=== PATIENT | female | born 1950 | race Caucasian/White ===

== ENCOUNTER → 2016-07-10 17:20 | Outpatient (CLI) | payer OTHER ==
[2013-01-16 14:46] VITALS: BMI 28.3
[~2016-07-10 17:20] MED LIST: ASCORBIC ACID500 MG PO; ASPIRIN 81 MG E81 MG PO; NEXIUM20 MG PO; VITAMIN D2000 UNIT PO; ZETIA10 MG PO
== END | disposition home or self-care (01) ==
LOC: D.MAMMO 05-03 13:00
DX: Z12.31 Encounter for screening mammogram for malignant neoplasm of breast (principal)

== ENCOUNTER → 2018-01-21 22:57 | Outpatient (CLI) | payer MEDICARE, OTHER ==
[2013-01-16 14:46] VITALS: BMI 28.3
== END | disposition home or self-care (01) ==
LOC: D.MAMMO 15:00
DX: Z12.31 Encounter for screening mammogram for malignant neoplasm of breast (principal)

== ENCOUNTER → 2019-05-13 08:00 | Outpatient (CLI) | payer MEDICARE, OTHER ==
[2013-01-16 14:46] VITALS: BMI 28.3
== END | disposition home or self-care (01) ==
LOC: D.MAMMO 08:00
PROVIDERS: ATTEND Family Medicine
DX: Z12.31 Encounter for screening mammogram for malignant neoplasm of breast (principal)